=== PATIENT | female | born 1935 | race Caucasian/White ===

== ENCOUNTER 2022-12-22 15:21 | Emergency (ER) | payer OTHER ==
[~2022-12-22] VITALS: Ht 157.5 cm; Wt 59.0 kg
[2022-12-22] MEDS ORDERED: ROSUVASTATIN CA20 MG PO (17:21)
[2022-12-22] MEDS ORDERED: AMLODIPINE BESYL5 MG PO (17:21)
[2022-12-22] MEDS ORDERED: ELIQUIS5 MG PO (17:21)
[2022-12-22 17:41] LABS: HEMATOCRIT 41.1 % (36.0-45.00); HEMOGLOBIN 13.9 g/dL (12.0-15.00); MEAN CELL VOLUME 91.8 fL (80.00-100.00); MEAN CORPUSCULAR HEMOGLOBIN 31.1 pg (27.00-32.0); MEAN CORPUSCULAR HGB CONC 33.8 g/dl (32.0-36.0); PLATELET COUNT 256 K/uL (150-450); RED BLOOD COUNT 4.48 M/uL (4.00-6.00); RED CELL DISTRIBUTION WIDTH 13.4 % (11.5-14.5)
[2022-12-22 18:00] LABS: CREATININE SERUM 0.66 mg/dL (0.55-1.02); GFR 84.72; PARTIAL THROMBOPLASTIN TIME 30.9 SECONDS (22.0-34.0); POTASSIUM 3.33 mEq/L (3.5-5.1); PROTHROMBIN TIME 10.5 SECONDS (9.0-11.5)
[2022-12-22] MEDS ORDERED: HYDROCHLOROTHIA25 MG PO (18:57)
[2022-12-22] MEDS ORDERED: VITAMIN B-121000 MCG PO (18:57)
[2022-12-22] MEDS ORDERED: CARVEDILOL3.125 M1 PO (18:57)
== END 2022-12-22 20:05 | disposition home or self-care (01) ==
LOC: ER 15:22
PROVIDERS: General Practice
DX: I10 Essential (primary) hypertension (principal); Z88.6 Allergy status to analgesic agent; Z91.013 Allergy to seafood
CPT/HCPCS: 36415; 71045; 93005; 96365; 99284; J3490